=== PATIENT | female | born 1950 | race American Indian/Alaskan Native ===

== ENCOUNTER 2019-05-23 04:51 | Emergency (ER) | payer MEDICARE ==
[2019-05-23] MEDS ORDERED: MORPHINE IM ONE (05:29)
[2019-05-23] MEDS ORDERED: MORPHINE IV ONE (05:32)
--- NOTE | 2019-05-23 06:06 | XRay Report ---
THORACIC SPINE 2 VIEWS 0544 INDICATION: Fell one week ago, worsening pain COMPARISON: None available. FINDINGS: Slight kyphoscoliosis is noted. Diffuse mild to moderate degenerative changes are seen. The se are most prominent in the mid thoracic area. No fractures or subluxations are seen. LUMBAR SPINE 2 VIEWS 0545 INDICATION: back pain COMPARISON: None available. FINDINGS: Mild scoliosis is seen. Mild bilateral sacroiliac arthritic changes are noted. Lower facet arthritic changes are seen. Mild diffuse degenerative changes are noted. Disc spaces are maintained. No fractures are seen. Mild anterolisthesis is noted at L4-5. Signer Name: Abdirizak Morris MD Signed: 05/23/2019 6:02 AM Workstation Name: [id number]
[2019-05-23] MEDS ORDERED: NORCO 5/325 PO ONE (07:30)
--- NOTE | 2019-05-23 08:13 | Emergency Department Report ---
ED General Adult HPI - General Chief complaint: Back Pain/Injury Stated complaint: BACK PAIN Time Seen by Provider: 05/23/19 07:29 Source: patient, EMS Mode of arrival: Ambulatory Limitations: No Limitations - History of Present Illness Initial comments: Patient presents to emergency department with a chief complaint of lower back and right leg pain. Patient states 10 days ago she was working down some steps with [employer] last stent and twisted her right leg in a hole next to the steps. Patient states she has a history of a back injury in 1965 with resultant surgery. Patient denies any nausea numbness or issues with her bladder or bowel. Location: back Radiation: extremity Severity scale (0 -10): 5 Quality: sharp Consistency: constant Improves with: rest Worsens with: movement Associated Symptoms: denies other symptoms Treatments Prior to Arrival: none - Related Data Home Medications Medication Instructions Recorded Confirmed Last Taken amLODIPine/VALSARTAN [Exforge 1 each PO DAILY 07/12/13 01/02/15 01/01/15 5-320 mg Tablet] Previous Rx's Medication Instructions Recorded Last Taken Type amLODIPine/VALSARTAN [Exforge 1 each PO DAILY #30 tab 01/02/15 Unknown Rx 10-320 mg Tablet] Acetaminophen/Codeine [Tylenol 1 tab PO Q6H PRN #15 tab 05/23/19 Unknown Rx /Codeine # 3 tab] Ibuprofen [Motrin] 800 mg PO Q8HR PRN #30 tablet 05/23/19 Unknown Rx Ondansetron [Zofran Odt] 4 mg PO Q4HR PRN #20 tab.rapdis 05/23/19 Unknown Rx Allergies Allergy/AdvReac Type Severity Reaction Status Date / Time aspirin Allergy Bleeding Verified 07/12/13 23:29 ED Review of Systems ROS: Stated complaint: BACK PAIN Other details as noted in HPI Comment: All other systems reviewed and negative Constitutional: denies: chills, fever Eyes: denies: eye pain, eye discharge, vision change ENT: denies: ear pain, throat pain Respiratory: denies: cough, shortness of breath, wheezing Cardiovascular: denies: chest pain, palpitations Endocrine: no symptoms reported Gastrointestinal: denies: abdominal pain, nausea, diarrhea Genitourinary: denies: urgency, dysuria, discharge Musculoskeletal: back pain. denies: joint swelling, arthralgia Skin: denies: rash, lesions Neurological: denies: headache, weakness, paresthesias Psychiatric: denies: anxiety, depression Hematological/Lymphatic: denies: easy bleeding, easy bruising ED Past Medical Hx - Past Medical History Previous Medical History?: Yes Hx Hypertension: Yes - Surgical History Hx Cholecystectomy: Yes Additional Surgical History: hysterectomy - Social History Smoking Status: Current Every Day Smoker - Medications Home Medications: Home Medications Medication Instructions Recorded Confirmed Last Taken Type amLODIPine/VALSARTAN [Exforge 1 each PO DAILY 07/12/13 01/02/15 01/01/15 History 5-320 mg Tablet] amLODIPine/VALSARTAN [Exforge 1 each PO DAILY #30 tab 01/02/15 Unknown Rx 10-320 mg Tablet] Acetaminophen/Codeine [Tylenol 1 tab PO Q6H PRN #15 tab 05/23/19 Unknown Rx /Codeine # 3 tab] Ibuprofen [Motrin] 800 mg PO Q8HR PRN #30 tablet 05/23/19 Unknown Rx Ondansetron [Zofran Odt] 4 mg PO Q4HR PRN #20 tab.rapdis 05/23/19 Unknown Rx ED Physical Exam - General Limitations: No Limitations General appearance: alert, in no apparent distress - Head Head exam: Present: atraumatic, normocephalic - Eye Eye exam: Present: normal appearance, PERRL, EOMI - ENT ENT exam: Present: mucous membranes moist - Neck Neck exam: Present: normal inspection - Respiratory Respiratory exam: Present: normal lung sounds bilaterally. Absent: respiratory distress - Cardiovascular Cardiovascular Exam: Present: regular rate, normal rhythm. Absent: systolic murmur, diastolic murmur, rubs, gallop - GI/Abdominal GI/Abdominal exam: Present: soft, normal bowel sounds. Absent: distended, tenderness - Extremities Exam Extremities exam: Present: normal inspection - Back Exam Back exam: Present: paraspinal tenderness - Neurological Exam Neurological exam: Present: alert, oriented X3, CN II-XII intact. Absent: motor sensory deficit - Psychiatric Psychiatric exam: Present: normal affect, normal mood - Skin Skin exam: Present: warm, dry, intact, normal color. Absent: rash ED Course Vital Signs 05/23/19 05/23/19 05/23/19 04:58 06:53 06:54 Temperature 97.7 F Pulse Rate 80 78 Respiratory 18 16 16 Rate Blood Pressure 139/68 Blood Pressure 153/77 [Left] O2 Sat by Pulse 96 94 Oximetry 05/23/19 07:39 Temperature Pulse Rate 72 Respiratory 16 Rate Blood Pressure Blood Pressure 142/72 [Left] O2 Sat by Pulse 95 Oximetry ED Medical Decision Making - Medical Decision Making Discussed results with patient Critical care attestation.: If time is entered above; I have spent that time in minutes in the direct care of this critically ill patient, excluding procedure time. ED Disposition Clinical Impression: Lower back injury, Lower back pain Disposition: DC-01 TO HOME OR SELFCARE Is pt being admited?: No Does the pt Need Aspirin: No Condition: Stable Instructions: Low Back Strain (ED) Additional Instructions: return if worse Prescriptions: Ibuprofen [Motrin] 800 mg PO Q8HR PRN #30 tablet PRN Reason: Pain Acetaminophen/Codeine [Tylenol /Codeine # 3 tab] 1 tab PO Q6H PRN #15 tab PRN Reason: pain Ondansetron [Zofran Odt] 4 mg PO Q4HR PRN #20 tab.rapdis PRN Reason: Nausea Referrals: AMBER SMITH MD [Staff Physician] - 3-5 Days Forms: Work/School Excuse Out Patient, Work/School Release Form Time of Disposition: 08:13
[2019-05-23 08:54] VITALS: BP 130/63
== END 2019-05-23 08:20 | disposition home or self-care (01) ==
LOC: ED 04:51
DX: S39.92XA Unspecified injury of lower back, initial encounter (principal); I10 Essential (primary) hypertension; F17.200 Nicotine dependence, unspecified, uncomplicated; Z90.49 Acquired absence of other specified parts of digestive tract; Z90.710 Acquired absence of both cervix and uterus; Z79.1 Long term (current) use of non-steroidal anti-inflammatories (NSAID); Z79.899 Other long term (current) drug therapy; Z88.6 Allergy status to analgesic agent; W10.8XXA Fall (on) (from) other stairs and steps, initial encounter; Y93.89 Activity, other specified; Y92.89 Other specified places as the place of occurrence of the external cause; Y99.8 Other external cause status
CPT/HCPCS: 72070; 72100; 96374; 99284; J2270

== ENCOUNTER 2019-05-27 16:32 | Emergency (ER) | payer MEDICARE ==
[2019-05-27 16:38] VITALS: BP 144/76
--- NOTE | 2019-05-27 17:27 | Event Note ---
ED Screening Note Date of service: 05/27/19 Time: 17:25 ED Screening Note: This is a 68 y.o. F. that presents to the ER with pain from right thigh to right knee for 2 weeks. Patient states she fell 2 weeks ago and pain is worsening. This initial assessment/diagnostic orders/clinical plan/treatment(s) is/are subject to change based on patients health status, clinical progression and re- assessment by fellow clinical providers in the ED. Further treatment and workup at subsequent clinical providers discretion. Patient/guardian urged not to elope from the ED as their condition may be serious if not clinically assessed and managed. Initial orders include: XR right femur
[2019-05-27] MEDS ORDERED: MORPHINE IV ONE (18:17)
[2019-05-27] MEDS ORDERED: ZOFRAN IV ONE (18:17)
[2019-05-27] MEDS ORDERED: ZOFRAN ODT PO ONE (18:49)
[2019-05-27] MEDS ORDERED: DILAUDID IM ONE (18:49)
--- NOTE | 2019-05-27 19:43 | XRay Report ---
Right femur-5 views INDICATION: lateral thigh pain, fall. COMPARISON: None. IMPRESSION: Mild soft tissue swelling overlying the right hip/thigh. No acute fracture identified. Moderate DJD in the right hip. Signer Name: Ricardo Potts MD Signed: 05/27/2019 7:38 PM Workstation Name: [id number]
--- NOTE | 2019-05-27 20:01 | Emergency Department Report ---
ED Back Pain/Injury HPI - General Chief Complaint: Back Pain/Injury Stated Complaint: LOWER BACK/RT LEG PAIN Time Seen by Provider: 05/27/19 17:25 Source: patient, family, old records reviewed Limitations: Physical Limitation - History of Present Illness Initial Comments: 68-year-old female with a past medical history of arthritis, hypertension, cholecystectomy and previous hysterectomy presents to Hospital complaining of continued back pain and right leg pain times one week. Patient was here on May 23 with the same complaint of reported a fall the week prior. Patient had a lumbar and thoracic x-rays that showed degenerative changes without fracture. She was prescribed Tylenol No. 3, Motrin, and Zofran and discharged to follow-up with Dr. Pineda. Patient did follow up with Dr. Smith and was provided tramadol and tizanidine. Patient states thease meds are not helping with her pain and she has difficulty walking at times. Patient has pain to the right lower back with radiation to the right thigh and does not go below the knee. Patient has chronic right anterior thigh numbness since her hysterectomy in 1974. She denies bowel or bladder continence, fever, dysuria, nausea, vomiting, or hematuria. Apparently the patient went to the doctor on her own and was not able to communicate the treatment plan with her family members. Her family members were under the understanding that she was being referred to a paint process engineer without further workup. Once they provided me the follow-up paperwork I was able to decipher that patient was referred to Dr. Valdez who is actually a neurologist and scheduled for outpatient MRI on June 01. I explained that this is appropriate because MRI can identify herniated disc and other causes of radicular pain. - Related Data Home Medications Medication Instructions Recorded Confirmed Last Taken amLODIPine/VALSARTAN [Exforge 1 each PO DAILY 07/12/13 01/02/15 01/01/15 5-320 mg Tablet] Previous Rx's Medication Instructions Recorded Last Taken Type amLODIPine/VALSARTAN [Exforge 1 each PO DAILY #30 tab 01/02/15 Unknown Rx 10-320 mg Tablet] Acetaminophen/Codeine [Tylenol 1 tab PO Q6H PRN #15 tab 05/23/19 Unknown Rx /Codeine # 3 tab] Ibuprofen [Motrin] 800 mg PO Q8HR PRN #30 tablet 05/23/19 Unknown Rx Ondansetron [Zofran Odt] 4 mg PO Q4HR PRN #20 tab.rapdis 05/23/19 Unknown Rx Gabapentin [Neurontin] 300 mg PO Q8HR #90 capsule 05/27/19 Unknown Rx HYDROcodone/APAP 5-325 [[place] 1 - 2 each PO Q4HR PRN #20 tablet 05/27/19 Unknown Rx 5/325] Allergies Allergy/AdvReac Type Severity Reaction Status Date / Time aspirin Allergy Bleeding Verified 05/27/19 17:26 ED Review of Systems ROS: Stated complaint: LOWER BACK/RT LEG PAIN Other details as noted in HPI Comment: All other systems reviewed and negative ED Past Medical Hx - Past Medical History Previous Medical History?: Yes Hx Hypertension: Yes Hx Arthritis: Yes Additional medical history: Back pain - Surgical History Past Surgical History?: Yes Hx Cholecystectomy: Yes Additional Surgical History: hysterectomy - Social History Smoking Status: Current Every Day Smoker Substance Use Type: Alcohol, Prescribed - Medications Home Medications: Home Medications Medication Instructions Recorded Confirmed Last Taken Type amLODIPine/VALSARTAN [Exforge 1 each PO DAILY 07/12/13 01/02/15 01/01/15 History 5-320 mg Tablet] amLODIPine/VALSARTAN [Exforge 1 each PO DAILY #30 tab 01/02/15 Unknown Rx 10-320 mg Tablet] Acetaminophen/Codeine [Tylenol 1 tab PO Q6H PRN #15 tab 05/23/19 Unknown Rx /Codeine # 3 tab] Ibuprofen [Motrin] 800 mg PO Q8HR PRN #30 tablet 05/23/19 Unknown Rx Ondansetron [Zofran Odt] 4 mg PO Q4HR PRN #20 tab.rapdis 05/23/19 Unknown Rx Gabapentin [Neurontin] 300 mg PO Q8HR #90 capsule 05/27/19 Unknown Rx HYDROcodone/APAP 5-325 [[place] 1 - 2 each PO Q4HR PRN #20 tablet 05/27/19 Unknown Rx 5/325] ED Physical Exam - General Limitations: Physical Limitation - Other Other exam information: Gen.: No acute distress Head: Atraumatic Eyes: Normal appearance ENT: Moist mucous membranes Neck: Normal appearance, no posterior midline tenderness, no meningismus Chest: Clear to auscultation bilaterally Cardiovascular: Regular rate and rhythm Abdomen: Normal appearance, soft, nontender, no rebound or guarding, normal bowel sounds Back: Normal appearance, no midline lumbar tenderness. Mild right gluteal tenderness. Extremity: Full range of motion of right hip and knee, normal appearance. Mild tenderness to right quadricep muscles. Patient has numbness to the anterior right thigh is chronic. Mild right thigh swelling without redness, warmth, calf tenderness or edema Neuro: Alert, clear speech, patient able to ambulate in the ED. 2+ equal patellar reflexes. Psychiatric: Appropriate Skin: No rash ED Course Vital Signs 05/27/19 16:34 Temperature 98.1 F Pulse Rate 68 Respiratory 18 Rate Blood Pressure 144/76 O2 Sat by Pulse 97 Oximetry ED Medical Decision Making - Radiology Data Radiology results: report reviewed CT lumbar spine without contrast INDICATION: lower back pain/fall. TECHNIQUE: Axial imaging performed through the lumbar spine without the use of contrast. Sagittal and coronal reconstructed images were also reviewed. All CT scans at this location are performed using CT dose reduction for ALARA by means of automated exposure control. COMPARISON: None FINDINGS: Alignment: There is levoscoliosis in the thoracic spine with normal AP alignment. Bones: There is no acute osseous abnormality. Mild multilevel discogenic DJD is present. There is also multilevel facet arthropathy. Soft tissues: No acute or significant incidental soft tissue abnormality. IMPRESSION: No acute abnormality. Right femur-5 views INDICATION: lateral thigh pain, fall. COMPARISON: None. IMPRESSION: Mild soft tissue swelling overlying the right hip/thigh. No acute fracture identified. Moderate DJD in the right hip. - Medical Decision Making Imaging was suggestive of arthritis degenerative changes. Stronger pain medicine will be provided and patient encouraged to follow up for outpatient MRI as scheduled. Patient also due to follow-up with a neurologist. - Differential Diagnosis fxt, degenerative disc disease, herniated disc, arthritis, Critical Care Time: No Critical care attestation.: If time is entered above; I have spent that time in minutes in the direct care of this critically ill patient, excluding procedure time. ED Disposition Clinical Impression: Arthritis, lumbar spine, Arthritis of right hip, Lumbar radicular pain Disposition: TO HOME OR SELFCARE Is pt being admited?: No Does the pt Need Aspirin: No Condition: Stable Instructions: Degenerative Disc Disease (ED), Osteoarthritis (ED), Lumbar Radiculopathy (ED) Additional Instructions: You may take the newly prescribed [place] with the muscle relaxer tizanidine however both these medications may cause drowsiness. You may continue the Motrin anti-inflammatory medication with the [place] and tizanidine. Patient may also take Naprosyn instead of Motrin but do not take both of these medications together since they are the same class. Do not take both the [place] and the tramadol together. You were also prescribed gabapentin for nerve related pain. This may also cause drowsiness. If you prefer you can stop that tizanidine and see if the the newly prescribed medications help control your pain. Continue outpatient follow-up and workup as planned. Return if symptoms worsen as indicated by your discharge instructions. Use a walker or cane to help with ambulation and decrease risk of falls. Prescriptions: Gabapentin [Neurontin] 300 mg PO Q8HR #90 capsule HYDROcodone/APAP 5-325 [[place] 5/325] 1 - 2 each PO Q4HR PRN #20 tablet PRN Reason: Pain Referrals: AMBER SMITH MD [Staff Physician] - 3-5 Days () Time of Disposition: 20:44
--- NOTE | 2019-05-27 20:18 | Cat Scan Report ---
CT lumbar spine without contrast INDICATION: lower back pain/fall. TECHNIQUE: Axial imaging performed through the lumbar spine without the use of contrast. Sagittal a nd coronal reconstructed images were also reviewed. All CT scans at this location are performed usin g CT dose reduction for ALARA by means of automated exposure control. COMPARISON: None FINDINGS: Alignment: There is levoscoliosis in the thoracic spine with normal AP alignment. Bones: There is no acute osseous abnormality. Mild multilevel discogenic DJD is present. There is also multilevel facet arthropathy. Soft tissues: No acute or significant incidental soft tissue abnormality. IMPRESSION: No acute abnormality. Signer Name: Ricardo Potts MD Signed: 05/27/2019 8:13 PM Workstation Name: [id number]
[2019-05-27] MEDS ORDERED: NORCO 5/325 PO ONE (20:41)
== END 2019-05-27 21:11 | disposition home or self-care (01) ==
LOC: ED 16:32
DX: M46.96 Unspecified inflammatory spondylopathy, lumbar region (principal); M16.11 Unilateral primary osteoarthritis, right hip; I10 Essential (primary) hypertension; F17.200 Nicotine dependence, unspecified, uncomplicated; Z90.710 Acquired absence of both cervix and uterus; Z88.8 Allergy status to other drugs, medicaments and biological substances; Z79.899 Other long term (current) drug therapy
CPT/HCPCS: 72131; 73552; 96372; 99284; J1170; Q0162

== ENCOUNTER 2019-06-14 13:30 | Outpatient (CLI) | payer MEDICARE ==
[2019-06-14 15:20] LABS: Blood Urea Nitrogen 13 mg/dL (7-17)
--- NOTE | 2019-06-14 16:37 | Magnetic Resonance Report ---
MRI LUMBAR SPINE WITHOUT CONTRAST INDICATION / CLINICAL INFORMATION: LUMBAR RADICULOPATHY. TECHNIQUE: Multisequence, multiplanar images of the lumbar spine were obtained. COMPARISON: CT lumbar spine 05/27/2019 FINDINGS: ALIGNMENT: Normal alignment is maintained throughout the lumbar region. VERTEBRAE:Normal bone marrow signal intensity is maintained throughout the lumbar region. DISC MORPHOLOGY:Disc height and disc signal intensity are fairly well maintained throughout the lumba r region. VISUALIZED SPINAL CORD: Distal thoracic spinal cord, conus and nerve roots of the cauda equina all milner ve an unremarkable appearance. Conus terminates at about the level of the inferior endplate of L1 [id number] ANALYSIS: L1-2: No significant abnormality. L2-3: There is a moderate right-sided foraminal and far lateral disc extrusion with effacement of fat from the right L2 nerve root neural foramina and compression of the L2 nerve root in and lateral to its neural foramina. Central spinal canal and left L2 nerve root neuroforamina are adequately maintai ciaran. L3-4: Mild facet arthropathy is noted. Mild broad-based disc bulge flattens the thecal sac slightly. Facet arthritic changes contribute to mild right-sided foraminal narrowing at the L3 nerve root level . L4-5: Advanced facet arthropathy is noted. Facet hypertrophic changes are demonstrated. A right large r than left facet joint effusion is observed. Mild broad-based disc bulge flattens the thecal sac sli ghtly. Central spinal canal is adequate in size. Mild bilateral neuroforaminal narrowing is present a t the L5 nerve root level. L5-S1: Left worse than right facet arthritic changes are noted. Central spinal canal is adequately ma intained. Facet arthropathy contributes to mild bilateral foraminal stenosis at the L5 nerve root lev el. PARASPINAL SOFT TISSUES: Evaluation of the paraspinous soft tissues reveals no definite abnormalities . IMPRESSION: 1. Moderate right-sided foraminal and far lateral disc extrusion at L2-3. 2. Advanced right worse than left facet arthropathy L4-5. Signer Name: Cecil Luna MD Signed: 06/14/2019 4:33 PM Workstation Name: [id number]
== END 2019-06-14 13:31 | disposition home or self-care (01) ==
LOC: MRI 13:30
PROVIDERS: ATTEND Family Medicine
DX: M51.26 Other intervertebral disc displacement, lumbar region (principal); M48.061 Spinal stenosis, lumbar region without neurogenic claudication; I10 Essential (primary) hypertension; Z90.710 Acquired absence of both cervix and uterus
CPT/HCPCS: 36415; 72158; 82565; 84520; A9577